=== PATIENT | female | born 1940 | race Caucasian/White ===

== ENCOUNTER 2022-08-21 12:42 | Inpatient (IN) | payer OTHER, MEDICARE ==
[2022-08-21 12:53] VITALS: BMI 28.5
[2022-08-21 13:46] LABS: VENOUS BASE EXCESS 1.9 mmol/L (-2-2); VENOUS O2 SATURATION 73.6 % (70-80); VENOUS PCO2 49.9 mmHg (38-52); VENOUS PH 7.365 (7.310-7.410)
[2022-08-21 13:56] LABS: BASO % 1.1 % (0-2.0); EOS % 1.5 % (0-4.5); HEMATOCRIT 31.6 % (32.4-45.2); HEMOGLOBIN 10.4 GM/dL (10.7-15.3); LYMPH % 18.8 % (8-40); MCH 32.7 pg (25.7-33.7); MCHC 33.1 g/dl (32.0-36.0); MEAN CELL VOLUME 98.7 fl (80-96); MEAN PLT VOLUME 8.2 fl (7.5-11.1); MONO % 7.9 % (3.8-10.2); NEUT % 70.7 % (42.8-82.8); PLATELET COUNT 265 10^3/uL (134-434); RDW 14.3 % (11.6-15.6); WHITE BLOOD COUNT 10.1 K/mm3 (4.0-10.0)
[2022-08-21 14:02] LABS: INR 1.55 (0.83-1.09); PROTHROMBIN TIME (PATIENT) 17.9 SEC (9.7-13.0)
[2022-08-21 14:04] LABS: ACTIVATED PTT 30.9 SECONDS (25.2-36.5)
[2022-08-21 14:13] LABS: POTASSIUM 4.2 mmol/L (3.5-5.1)
[2022-08-21 14:15] LABS: CALCIUM 8.8 mg/dL (8.5-10.1)
[2022-08-21 14:16] LABS: ALBUMIN 2.6 g/dl (3.4-5.0); BLOOD UREA NITROGEN 16.1 mg/dL (7-18); MAGNESIUM 1.9 mg/dL (1.8-2.4)
[2022-08-21 14:19] LABS: CREATININE 0.7 mg/dL (0.55-1.3)
[2022-08-21 14:20] LABS: BILIRUBIN,TOTAL 0.4 mg/dL (0.2-1); TOT PROT 5.9 g/dl (6.4-8.2)
[2022-08-21 14:24] LABS: N-TERMINAL BNP 1307.7 pg/ml (5-450)
[2022-08-21 15:48] LABS: EPI CELLS >36 /uL (0-25.1); HYALINE CASTS 1 /uL (0-3.1); PH,URINE 6.5 (5.0-8.0); URINE APPEARANCE CLEAR; URINE BACTERIA >9,000 /uL (0-1359); URINE BILIRUBIN NEGATIVE (NEGATIVE); URINE COLOR YELLOW; URINE GLUCOSE (UA) NEGATIVE (NEGATIVE); URINE KETONE NEGATIVE (NEGATIVE); URINE LEUK ESTERASE 1+ (NEGATIVE); URINE NITRITE POSITIVE (NEGATIVE); URINE PROTEIN NEGATIVE (NEGATIVE); URINE RBC 26 /uL (0-23.9); URINE WBC 99 /uL (0-25.8)
[2022-08-21] MEDS ORDERED: PANTOPRAZOLE 40 MG TABLET PO ONE (16:08)
[2022-08-21] MEDS: PANTOPRAZOLE 40 MG TABLET PO SCH (16:18)
[2022-08-21] MEDS ORDERED: DOCUSATE SODIUM 100 MG CAPSULE (FP) PO PRN (16:31)
[2022-08-21] MEDS ORDERED: POLYETHYLENE GLYCOL (HEALTHYLAX) 3350 17 GM PACKET PO PRN (16:32)
[2022-08-21] MEDS ORDERED: SENNOSIDES 8.6MG TABLET (FP) PO PRN (16:33)
[2022-08-21] MEDS ORDERED: MELATONIN 1 MG TABLET PO PRN (16:34)
[2022-08-21] MEDS ORDERED: IRON SUCROSE INJECTION 300 MG in SODIUM CHLORIDE 235 ML IVPB ONE (17:30)
[2022-08-21] MEDS ORDERED: FUROSEMIDE 40 MG/4 ML INJECTABLE VIAL IVPUSH ONE (20:19)
[2022-08-21] MEDS: APIXABAN 5 MG TABLET PO SCH (21:28)
[2022-08-21] MEDS: ATORVASTATIN CA 40 MG TABLET (FP) PO SCH (21:28)
[2022-08-21] MEDS: GABAPENTIN 100 MG CAPSULE PO SCH (21:28)
[2022-08-21] MEDS: CARVEDILOL 25 MG TABLET (FP) PO SCH (21:28)
[2022-08-21] MEDS: ACETAMINOPHEN 325 MG TABLET (FP) PO PRN (21:33)
[2022-08-21] MEDS ORDERED: APIXABAN 2.5 MG TABLET PO SCH (22:00)
[2022-08-22] MEDS: GABAPENTIN 100 MG CAPSULE PO SCH ×3 (06:08→23:48)
[2022-08-22] MEDS: LEVOTHYROXINE NA 75 MCG TABLET (FP) PO SCH (06:08)
[2022-08-22] MEDS ORDERED: FUROSEMIDE 40 MG/4 ML INJECTABLE VIAL IVPUSH ONE (06:58)
[2022-08-22 08:11] LABS: BASO % 0.9 % (0-2.0); EOS % 1.8 % (0-4.5); HEMATOCRIT 31.1 % (32.4-45.2); HEMOGLOBIN 10.2 GM/dL (10.7-15.3); LYMPH % 17.5 % (8-40); MCH 32.8 pg (25.7-33.7); MCHC 32.9 g/dl (32.0-36.0); MEAN CELL VOLUME 99.9 fl (80-96); MEAN PLT VOLUME 8.6 fl (7.5-11.1); MONO % 6.1 % (3.8-10.2); NEUT % 73.7 % (42.8-82.8); PLATELET COUNT 275 10^3/uL (134-434); RBC 3.11 M/mm3 (3.60-5.2); RDW 13.7 % (11.6-15.6); WHITE BLOOD COUNT 8.8 K/mm3 (4.0-10.0)
[2022-08-22 08:32] LABS: POTASSIUM 4.1 mmol/L (3.5-5.1)
[2022-08-22 08:34] LABS: CALCIUM 8.8 mg/dL (8.5-10.1); MAGNESIUM 1.8 mg/dL (1.8-2.4)
[2022-08-22 08:38] LABS: CREATININE 0.5 mg/dL (0.55-1.3)
[2022-08-22] MEDS ORDERED: IRON SUCROSE INJECTION 300 MG in SODIUM CHLORIDE 235 ML IVPB ONE (09:00)
[2022-08-22] MEDS ORDERED: MAGNESIUM SULF 50% (8.12 MEQ/2 ML-1 GM VIAL) IVPB ONE (09:22)
[2022-08-22] MEDS ORDERED: FUROSEMIDE 40 MG TABLET (FP) PO SCH (10:00)
[2022-08-22] MEDS: CARVEDILOL 25 MG TABLET (FP) PO SCH ×2 (10:37→23:43)
[2022-08-22] MEDS: ASCORBIC ACID 500 MG TABLET (FP) PO SCH (10:37)
[2022-08-22] MEDS: APIXABAN 5 MG TABLET PO SCH ×2 (10:37→23:43)
[2022-08-22] MEDS: PANTOPRAZOLE 40 MG TABLET PO SCH (10:37)
[2022-08-22] MEDS: ATORVASTATIN CA 40 MG TABLET (FP) PO SCH (23:43)
[2022-08-23] MEDS: LEVOTHYROXINE NA 75 MCG TABLET (FP) PO SCH (06:28)
[2022-08-23] MEDS: GABAPENTIN 100 MG CAPSULE PO SCH ×3 (06:28→21:42)
[2022-08-23 07:37] LABS: BASO % 0.7 % (0-2.0); EOS % 1.9 % (0-4.5); HEMATOCRIT 31.5 % (32.4-45.2); HEMOGLOBIN 10.2 GM/dL (10.7-15.3); MCH 32.2 pg (25.7-33.7); MCHC 32.3 g/dl (32.0-36.0); MEAN CELL VOLUME 99.8 fl (80-96); MEAN PLT VOLUME 7.9 fl (7.5-11.1); MONO % 6.9 % (3.8-10.2); NEUT % 77.5 % (42.8-82.8); PLATELET COUNT 290 10^3/uL (134-434); RBC 3.16 M/mm3 (3.60-5.2); RDW 13.8 % (11.6-15.6)
[2022-08-23 07:50] LABS: POTASSIUM 3.7 mmol/L (3.5-5.1)
[2022-08-23 07:55] LABS: BLOOD UREA NITROGEN 13.8 mg/dL (7-18); CALCIUM 9.1 mg/dL (8.5-10.1)
[2022-08-23 07:58] LABS: CREATININE 0.6 mg/dL (0.55-1.3)
[2022-08-23] MEDS: ACETAMINOPHEN 325 MG TABLET (FP) PO PRN (09:29)
[2022-08-23] MEDS: ASCORBIC ACID 500 MG TABLET (FP) PO SCH (09:30)
[2022-08-23] MEDS: PANTOPRAZOLE 40 MG TABLET PO SCH (09:30)
[2022-08-23] MEDS: MULTIVITAMINS (DAILY MVI) TABLET (FP) PO SCH (09:30)
[2022-08-23] MEDS: APIXABAN 5 MG TABLET PO SCH ×2 (09:30→21:42)
[2022-08-23] MEDS: CARVEDILOL 25 MG TABLET (FP) PO SCH ×2 (09:30→21:42)
[2022-08-23] MEDS: KCL 10 MEQ IVPB 10 MEQ/100 ML INFUS.BAG IVPB SCH ×3 (09:31→16:46)
[2022-08-23] MEDS: FUROSEMIDE 40 MG/4 ML INJECTABLE VIAL IVPUSH SCH (09:31)
[2022-08-23] MEDS: ATORVASTATIN CA 40 MG TABLET (FP) PO SCH (21:42)
[2022-08-24] MEDS: LEVOTHYROXINE NA 75 MCG TABLET (FP) PO SCH (06:08)
[2022-08-24] MEDS: ACETAMINOPHEN 325 MG TABLET (FP) PO PRN ×3 (06:09→22:15)
[2022-08-24] MEDS: GABAPENTIN 100 MG CAPSULE PO SCH ×3 (06:10→22:14)
[2022-08-24 08:09] LABS: POTASSIUM 4.1 mmol/L (3.5-5.1)
[2022-08-24 08:10] LABS: CALCIUM 8.7 mg/dL (8.5-10.1)
[2022-08-24 08:11] LABS: BLOOD UREA NITROGEN 15.6 mg/dL (7-18)
[2022-08-24 08:14] LABS: CREATININE 0.7 mg/dL (0.55-1.3)
[2022-08-24 08:41] LABS: BASO % 0.6 % (0-2.0); EOS % 2.3 % (0-4.5); HEMATOCRIT 28.4 % (32.4-45.2); HEMOGLOBIN 9.2 GM/dL (10.7-15.3); LYMPH % 17.8 % (8-40); MCH 31.8 pg (25.7-33.7); MCHC 32.3 g/dl (32.0-36.0); MEAN CELL VOLUME 98.4 fl (80-96); MEAN PLT VOLUME 7.2 fl (7.5-11.1); MONO % 9.1 % (3.8-10.2); NEUT % 70.2 % (42.8-82.8); PLATELET COUNT 252 10^3/uL (134-434); RBC 2.89 M/mm3 (3.60-5.2); WHITE BLOOD COUNT 8.9 K/mm3 (4.0-10.0)
[2022-08-24] MEDS ORDERED: IRON SUCROSE INJECTION 300 MG in SODIUM CHLORIDE 235 ML IVPB ONE (10:15)
[2022-08-24] MEDS: FUROSEMIDE 40 MG/4 ML INJECTABLE VIAL IVPUSH SCH (10:30)
[2022-08-24] MEDS: MULTIVITAMINS (DAILY MVI) TABLET (FP) PO SCH (10:30)
[2022-08-24] MEDS: PANTOPRAZOLE 40 MG TABLET PO SCH (10:30)
[2022-08-24] MEDS: ASCORBIC ACID 500 MG TABLET (FP) PO SCH (10:30)
[2022-08-24] MEDS: APIXABAN 5 MG TABLET PO SCH ×2 (10:30→22:13)
[2022-08-24] MEDS: CARVEDILOL 25 MG TABLET (FP) PO SCH ×2 (10:30→22:14)
[2022-08-24] MEDS: ATORVASTATIN CA 40 MG TABLET (FP) PO SCH (22:14)
[2022-08-25] MEDS: GABAPENTIN 100 MG CAPSULE PO SCH ×3 (06:12→21:45)
[2022-08-25] MEDS: LEVOTHYROXINE NA 75 MCG TABLET (FP) PO SCH (06:12)
[2022-08-25 06:39] LABS: BASO % 0.7 % (0-2.0); EOS % 1.6 % (0-4.5); HEMATOCRIT 29.8 % (32.4-45.2); HEMOGLOBIN 9.9 GM/dL (10.7-15.3); LYMPH % 15.6 % (8-40); MCH 32.9 pg (25.7-33.7); MCHC 33.1 g/dl (32.0-36.0); MEAN CELL VOLUME 99.4 fl (80-96); MEAN PLT VOLUME 7.9 fl (7.5-11.1); MONO % 7.7 % (3.8-10.2); NEUT % 74.4 % (42.8-82.8); PLATELET COUNT 273 10^3/uL (134-434); RDW 13.5 % (11.6-15.6); WHITE BLOOD COUNT 9.9 K/mm3 (4.0-10.0)
[2022-08-25 06:58] LABS: POTASSIUM 3.8 mmol/L (3.5-5.1)
[2022-08-25 07:02] LABS: CALCIUM 8.9 mg/dL (8.5-10.1)
[2022-08-25 07:06] LABS: CREATININE 0.7 mg/dL (0.55-1.3)
[2022-08-25] MEDS: ASCORBIC ACID 500 MG TABLET (FP) PO SCH (11:05)
[2022-08-25] MEDS: MULTIVITAMINS (DAILY MVI) TABLET (FP) PO SCH (11:05)
[2022-08-25] MEDS: PANTOPRAZOLE 40 MG TABLET PO SCH (11:05)
[2022-08-25] MEDS: APIXABAN 5 MG TABLET PO SCH ×2 (11:05→21:45)
[2022-08-25] MEDS: CARVEDILOL 25 MG TABLET (FP) PO SCH ×2 (11:05→21:45)
[2022-08-25] MEDS: FUROSEMIDE 40 MG TABLET (FP) PO SCH (11:06)
[2022-08-25] MEDS: ATORVASTATIN CA 40 MG TABLET (FP) PO SCH (21:46)
[2022-08-25] MEDS: ACETAMINOPHEN 325 MG TABLET (FP) PO PRN (21:46)
[2022-08-26] MEDS: LEVOTHYROXINE NA 75 MCG TABLET (FP) PO SCH (06:32)
[2022-08-26] MEDS: GABAPENTIN 100 MG CAPSULE PO SCH ×2 (06:32→14:53)
[2022-08-26 08:14] LABS: BASO % 0.6 % (0-2.0); EOS % 1.5 % (0-4.5); HEMATOCRIT 28.8 % (32.4-45.2); HEMOGLOBIN 9.6 GM/dL (10.7-15.3); LYMPH % 20.2 % (8-40); MCH 33.1 pg (25.7-33.7); MCHC 33.3 g/dl (32.0-36.0); MEAN CELL VOLUME 99.4 fl (80-96); MEAN PLT VOLUME 7.9 fl (7.5-11.1); MONO % 8.2 % (3.8-10.2); NEUT % 69.5 % (42.8-82.8); PLATELET COUNT 272 10^3/uL (134-434); RDW 13.8 % (11.6-15.6); WHITE BLOOD COUNT 10.1 K/mm3 (4.0-10.0)
[2022-08-26 08:27] LABS: POTASSIUM 3.6 mmol/L (3.5-5.1)
[2022-08-26 08:29] LABS: CALCIUM 8.8 mg/dL (8.5-10.1)
[2022-08-26 08:30] LABS: BLOOD UREA NITROGEN 19.6 mg/dL (7-18); MAGNESIUM 1.6 mg/dL (1.8-2.4)
[2022-08-26 08:33] LABS: CREATININE 0.6 mg/dL (0.55-1.3)
[2022-08-26] MEDS ORDERED: MAGNESIUM SULF 50% (8.12 MEQ/2 ML-1 GM VIAL) IVPB ONE (08:46)
[2022-08-26] MEDS: APIXABAN 5 MG TABLET PO SCH (10:34)
[2022-08-26] MEDS: MULTIVITAMINS (DAILY MVI) TABLET (FP) PO SCH (10:34)
[2022-08-26] MEDS: PANTOPRAZOLE 40 MG TABLET PO SCH (10:34)
[2022-08-26] MEDS: ASCORBIC ACID 500 MG TABLET (FP) PO SCH (10:34)
[2022-08-26] MEDS: FUROSEMIDE 40 MG TABLET (FP) PO SCH (10:34)
[2022-08-26] MEDS: CARVEDILOL 25 MG TABLET (FP) PO SCH (10:34)
[2022-08-26] MEDS: ACETAMINOPHEN 325 MG TABLET (FP) PO PRN (11:37)
[2022-08-26 11:39] VITALS: PULSE 70; TEMP 97.8
[2022-08-26] MEDS: KCL 10 MEQ IVPB 10 MEQ/100 ML INFUS.BAG IVPB SCH ×3 (11:53→14:50)
[2022-08-26 15:46] VITALS: BP 120/64; RESP 18
[2022-08-27] MEDS ORDERED: POTASSIUM CHLORIDE TABS 10 MEQ TABLET.ER (FP) PO SCH ×2 (09:00→10:00)
== END 2022-08-26 17:42 | disposition home or self-care (01) | DRG 291 ==
LOC: JER 12:42 → JERBED 14:59 → OBSVTOIN 15:11 → J4W 18:02
PROVIDERS: ADMIT Internal Medicine; ATTEND Internal Medicine
DX: I11.0 Hypertensive heart disease with heart failure (principal); I50.33 Acute on chronic diastolic (congestive) heart failure; I48.0 Paroxysmal atrial fibrillation; E78.5 Hyperlipidemia, unspecified; E03.9 Hypothyroidism, unspecified; I25.10 Atherosclerotic heart disease of native coronary artery without angina pectoris; Z95.1 Presence of aortocoronary bypass graft; K59.00 Constipation, unspecified; E83.42 Hypomagnesemia; E87.6 Hypokalemia; D50.9 Iron deficiency anemia, unspecified
CPT/HCPCS: 0241U-QW; 36415; 71045-TC-FY; 71250-TC; 80048; 80053; 81003; 82728; 82803; 83540; 83550; 83735; 83880; 84484; 85025; 85379; 85610; 85730; 86850; 86900; 86901; 87086; 93005; 93010; 93880-TC; 97116-GP; 97162-GP; 99285-25; G0378; J1756